=== PATIENT | female | born 1990 | race Caucasian/White ===

== ENCOUNTER 2016-12-14 14:11 | Emergency (ER) | payer BC ==
[2016-12-14 15:08] VITALS: BP 100/59
--- NOTE | 2016-12-14 15:10 | UC ---
Syncope/New Syncope HPI - HPI Summary HPI Summary: 26 yo F with hx H. pylori ulcers, followed by Dr. Yue GR MD in [place], now off H2 blockers and PPIs, c/o severe epigastric pain, inability to keep anything down, and "if she does keep it down it goes right through her as diarrhea" x 3 days. This am in the bathroom, she had syncopal episode. Boyfriend heard her fall and saw her immediately afterward. Pt denies hitting her head, and no neck pain or back pain. +LOC, but for less than a minute per boyfriend. No seizure activity and no incontinence. Pt also has hx of ASD that is not closed that was discovered in evaluation after another syncopal event. Pt denies CP, SOB. 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 Pt's sister is with pt and states pt is not confused and speech has been clear, and no signs of a CVA. - History Of Current Complaint Chief Complaint: UCAbdominalPain Stated Complaint: ABD/STOMACH PAIN Time Seen by Provider: 12/14/16 14:42 Hx Obtained From: Patient, Family/Rubber Stamp Maker - sister Hx Last Menstrual Period: IUD ?: No Onset/Duration: Sudden Onset, Lasting Hours, Still Present Activity At Onset: Other - in the bathroom Timing: Frequency Of Episodes - x1 Frequency: Episodes x___ - 1, Episodes Lasting ____ (in Mins/Days/Weeks/Years) - less than a minute Context: Unwitnessed Associated Head Trauma: No Pain Intensity: 9 - epigastric pain, that preceded the syncope Pain Scale Used: 0-10 Numeric Aggravating Factor(s): Nothing Alleviating Factor(s): Nothing Associated Signs And Symptoms: Positive: Diarrhea, Pain Related History: Similar Episode/Dx as - ulcer, ASD - Risk Factors Cardiac Risk Factors: Negative Dysrhythmia Risk Factors: Negative Risk Factor(s): Negative - Allergies/Home Medications Allergies/Adverse Reactions: Allergies Allergy/AdvReac Type Severity Reaction Status Date / Time Erythromycin Allergy Severe anaphylaxis Verified 12/14/16 14:36 Sulfamethoxazole Allergy Severe anaphylaxis Verified 12/14/16 14:36 w/Trimethoprim [From ] Sulfa Antibiotics Allergy Anaphylatic Verified 12/14/16 14:36 Shock PMH/Surg Hx/FS Hx/Imm Hx Previously Healthy: No - fatty liver on CT Endocrine History Of: Denies: Diabetes, Thyroid Disease Cardiovascular History Of: Reports: Cardiac Disorders - Atrial septal wall defect Denies: Hypertension Respiratory History Of: Reports: Asthma Denies: COPD GI/ History Of: Reports: Ulcer - H pylori ulcer - Surgical History Surgical History: Yes Surgery Procedure, Year, and Place: breast reduction. appendectomy - Family History Known Family History: Positive: Cardiac Disease, Hypertension, Other - gall bladder disease - Social History Occupation: Employed Full-time Alcohol Use: Occasionally Substance Use Type: None Smoking Status (MU): Never Smoked Tobacco When Did the Patient Quit Smoking/Using Tobacco: 2008 - Immunization History Most Recent Influenza Vaccination: Not the Review of Systems Constitutional: Negative Skin: Negative Eyes: Negative ENT: Negative Respiratory: Negative Cardiovascular: Negative Gastrointestinal: Abdominal Pain, Vomiting, Diarrhea Genitourinary: Negative Motor: Negative Neurovascular: Negative Musculoskeletal: Negative Neurological: Other - syncope Psychological: Negative All Other Systems Reviewed And Are Negative: Yes Physical Exam Triage Information Reviewed: Yes Appearance: Ill-Appearing, Pain Distress, Thin Vital Signs: Initial Vital Signs Temp 98.8 F 12/14/16 14:31 Pulse 52 12/14/16 14:31 Resp 16 12/14/16 14:31 BP 109/68 12/14/16 14:31 Pulse Ox 100 12/14/16 14:31 Vital Signs Reviewed: Yes Eyes: Positive: Conjunctiva Clear ENT: Positive: Hearing grossly normal. Negative: Muffled/hoarse voice Neck: Positive: Supple, Nontender, No Lymphadenopathy Respiratory: Positive: Lungs clear, Normal breath sounds, No respiratory distress, No accessory muscle use Cardiovascular: Positive: RRR, No Murmur - despite ASD hx, no murmur audible to me, Pulses Normal, Brisk Capillary Refill Abdomen Description: Positive: No Organomegaly, Soft. Negative: Nontender - tender epigastrium, Distended, Guarding, Hepatomegaly, McBurney's Point Tenderness, Peritoneal Signs, Pulsatile Mass, Splenomegaly Bowel Sounds: Positive: Present Musculoskeletal: Positive: Strength Intact, ROM Intact Neurological: Positive: Alert, Muscle Tone Normal Psychological Exam: Normal Skin Exam: Normal Syncope Course/Dx - Differential Dx/Diagnosis Differential Diagnosis/HQI/PQRI: GI Bleed, Hypovolemia, Vasovagal Episode, Other - dehydration, metabolic abnormality Provider Diagnoses: syncope. hx ASD. hx H. pylori ulcer disease - Physician Notification/Consults Time Discussed With Above Provider: 15:00 - Cinthya Dasilva NP Instructed by Provider To: Will See In ED Discharge - Discharge Plan Condition: Stable Disposition: AGAINST MEDICAL ADVICE Discharge Disposition Comment: pt [facility], with sister Marita driving
== END 2016-12-14 15:08 | disposition left against medical advice (07) ==
LOC: UCCORT 14:11
DX: R55 Syncope and collapse (principal); J45.909 Unspecified asthma, uncomplicated; Z87.11 Personal history of peptic ulcer disease; Z87.74 Personal history of (corrected) congenital malformations of heart and circulatory system; Z88.1 Allergy status to other antibiotic agents; Z88.2 Allergy status to sulfonamides; Z87.891 Personal history of nicotine dependence
CPT/HCPCS: 93005; 99213; G0463

== ENCOUNTER 2017-04-27 17:45 | Emergency (ER) | payer BC ==
[2017-04-27 18:21] VITALS: BP 127/99
[2017-04-27] MEDS ORDERED: Ondansetron ODT TAB* 4 MG PO ONE (19:18)
[2017-04-27] MEDS ORDERED: Ondansetron ODT TAB* 4 MG ONE (19:19)
--- NOTE | 2017-04-27 19:26 | UC ---
Back Pain HPI - HPI Summary HPI Summary: Pt presents with left side flank pain that began 5 days ago Pt reports that the pain has worsened over the the last few days, pt has been vomiting daily, and had loose stools beginning this morning. Pt has positive history of pyelonephritis. Pt denies urinary symptoms. - History of Current Complaint Chief Complaint: UCBackPain Stated Complaint: ABDOMINAL AND BACK PAIN/VOMITING Time Seen by Provider: 04/27/17 18:56 Hx Obtained From: Patient Hx Last Menstrual Period: Mirena ?: No Onset/Duration: Gradual Onset, Lasting Days - 5 Timing: Constant Severity Initially: Mild Severity Currently: Moderate Back Pain: Is Discrete @ - left flank Character: Dull, Aching Aggravating: Movement Alleviating: Nothing Associated Signs And Symptoms: Positive: Flank Pain - left side - Risk Factors AAA Risk Factors: Negative TAD Risk Factors: Negative Cauda Equina Risk Factors: Negative Epidural Abscess Risk Factors: Negative - Allergies/Home Medications Allergies/Adverse Reactions: Allergies Allergy/AdvReac Type Severity Reaction Status Date / Time Erythromycin Allergy Severe anaphylaxis Verified 04/27/17 18:21 Sulfamethoxazole Allergy Severe anaphylaxis Verified 04/27/17 18:21 w/Trimethoprim [From ] Sulfa Antibiotics Allergy Anaphylatic Verified 04/27/17 18:21 Shock Home Medications: Home Medications Biotin 1 tab PO DAILY 04/27/17 [History Confirmed 04/27/17] Levonorgestrel (Iud) [Mirena IUD] 20 mcg IU ONCE 04/27/17 [History Confirmed ] PMH/Surg Hx/FS Hx/Imm Hx Previously Healthy: Yes GI/ History: Other - pyelonephritis Other GI/ History: pyelonephritis - Surgical History Surgical History: Yes Surgery Procedure, Year, and Place: breast reduction. appendectomy - Family History Known Family History: Positive: Cardiac Disease, Hypertension, Other - gall bladder disease - Social History Occupation: Employed Full-time Lives: With Family Alcohol Use: Occasionally Substance Use Type: None Smoking Status (MU): Never Smoked Tobacco Have You Smoked in the Last Year: No When Did the Patient Quit Smoking/Using Tobacco: 2008 - Immunization History Most Recent Influenza Vaccination: Not the 2015/2015 Season Review of Systems Constitutional: Chills, Fatigue Skin: Negative Eyes: Negative ENT: Negative Respiratory: Negative Cardiovascular: Negative Gastrointestinal: Abdominal Pain, Vomiting, Diarrhea, Nausea Genitourinary: Other - left flank pain Motor: Negative Neurovascular: Negative Musculoskeletal: Negative Neurological: Negative Psychological: Negative Is Patient Immunocompromised?: No All Other Systems Reviewed And Are Negative: Yes Physical Exam Triage Information Reviewed: Yes Appearance: Ill-Appearing, Pain Distress Vital Signs: Initial Vital Signs Temp 98.5 F 04/27/17 18:16 Pulse 75 04/27/17 18:16 Resp 14 04/27/17 18:16 BP 127/99 04/27/17 18:16 Pulse Ox 100 04/27/17 18:16 Vital Signs Reviewed: Yes Eye Exam: Normal ENT Exam: Normal Neck exam: Normal Respiratory Exam: Normal Cardiovascular Exam: Normal Abdominal Exam: Other Abdomen Description: Positive: CVA Tenderness (L) Bowel Sounds: Positive: Present Musculoskeletal Exam: Normal Neurological Exam: Normal Psychological Exam: Normal Skin Exam: Normal Back Pain Course/Dx - Course Course Of Treatment: I dsicussed with the pt the need to go to the closest ER for further evaluation and testing. I discussed with the pt alyson results of her UA. Pt verbalized understanding and agreed to plan of care. - Differential Dx/Diagnosis Differential Diagnosis/HQI/PQRI: Other - flank pain, left side. Provider Diagnoses: left side flank pain. concern for pyelonephritis - Physician Notifications Discussed Care With: Matilda quintana - pt accepted Time Discussed With Above Provider: 19:15 Discharge - Discharge Plan Condition: Stable Disposition: HOME Patient Education Materials: Flank Pain (ED) Referrals: CALLIE Ferris [Primary Care Provider] - Additional Instructions: It is recommended that you seek care at the closest Emergency Room now for further testing and evaluation.
== END 2017-04-27 19:21 | disposition home or self-care (01) ==
LOC: UCCORT 17:45
DX: R10.32 Left lower quadrant pain (principal); M54.5 Low back pain; R11.10 Vomiting, unspecified; R19.7 Diarrhea, unspecified; Z87.448 Personal history of other diseases of urinary system; Z88.1 Allergy status to other antibiotic agents; Z88.2 Allergy status to sulfonamides
CPT/HCPCS: 81003; 87086; 99212; A9270-GY; G0463